=== PATIENT | female | born 1990 | race Caucasian/White ===

== ENCOUNTER 2018-01-18 15:13 | Emergency (ER) | payer MEDICAID ==
--- NOTE | 2018-01-18 15:25 | EDPHY ---
H & P Time Seen by Provider: 01/18/18 15:15 HPI/ROS: CHIEF COMPLAINT: Heroin overdose HISTORY OF PRESENT ILLNESS: The patient is a 27-year-old female with history of IV heroin abuse who [facility]. She had some leftover heroin with her and snorted it at 2:00 p.m. Today. She was found unresponsive by staff. She did not respond to sternal rub but did respond to 4 mg of intranasal Narcan. She is now awake and alert. EMS was called and did not intervene other than bring her here. They are not able to obtain IV access. She denies any complaints at this time other than a mild headache. She states that she took her typical amount of her heroin but she has not used in about a month. REVIEW OF SYSTEMS: Constitutional: denies: chills, fever, recent illness, recent injury EENTM: denies: blurred vision, double vision, nose congestion Respiratory: denies: cough, shortness of breath Cardiac: denies: chest pain, irregular heart rate, lightheadedness, palpitations Gastrointestinal/Abdominal: denies: abdominal pain, diarrhea, nausea, vomiting, blood streaked stools Genitourinary: denies: dysuria, frequency, hematuria, pain Musculoskeletal: denies: joint pain, muscle pain Skin: denies: lesions, rash, jaundice, bruising Neurological: denies: headache, numbness, paresthesia, tingling, dizziness, weakness Hematologic/Lymphatic: denies: blood clots, easy bleeding, easy bruising Immunologic/allergic: denies: HIV/AIDS, transplant EXAM: GENERAL: Well-appearing, well-nourished and in no acute distress. HEAD: Atraumatic, normocephalic. EYES: Pupils equal round and reactive to light, extraocular movements intact, sclera anicteric, conjunctiva are normal. ENT: TMs normal, nares patent, oropharynx clear without exudates. Moist mucous membranes. NECK: Normal range of motion, supple without lymphadenopathy or JVD. LUNGS: Rub cachorro to chest, Breath sounds clear to auscultation bilaterally and equal. No wheezes rales or rhonchi. HEART: Regular rate and rhythm without murmurs, rubs or gallops. ABDOMEN: Soft, nontender, normoactive bowel sounds. No guarding, no rebound. No masses appreciated. BACK: No CVA tenderness, no spinal tenderness, step-offs or deformities EXTREMITIES: Normal range of motion, no pitting or edema. No clubbing or cyanosis. NEUROLOGICAL: Cranial nerves II through XII grossly intact. Normal speech, normal gait. 5/5 strength, normal movement in all extremities, normal sensation PSYCH: Normal mood, normal affect. SKIN: See above, Warm, dry, normal turgor, no visible rashes or lesions. Source: Patient, EMS Exam Limitations: No limitations - Personal History Current Tetanus/Diphtheria Vaccine: Yes - Medical/Surgical History Hx Asthma: No Hx Chronic Respiratory Disease: No Hx Diabetes: No Hx Cardiac Disease: No Hx Renal Disease: No Hx Cirrhosis: No Hx Alcoholism: No Hx HIV/AIDS: No Hx Splenectomy or Spleen Trauma: No Other PMH: IV drug abuse, MRSA, KIDNEY STONES - Family History Significant Family History: No pertinent family hx - Social History Smoking Status: Never smoked Alcohol Use: Occasionally Drug Use: Heroin Constitutional: Initial Vital Signs Temperature (C) 36.7 C 01/18/18 15:21 Heart Rate 83 01/18/18 15:21 Respiratory Rate 16 01/18/18 15:21 Blood Pressure 116/81 H 01/18/18 15:21 O2 Sat (%) 98 01/18/18 15:21 O2 Delivery Mode Room Air Allergies/Adverse Reactions: Penicillins Allergy (Severe, Verified 01/18/18 15:24) Anaphylaxis amoxicillin Allergy (Verified 01/18/18 15:24) Home Medications: Medication Instructions Recorded None 11/14/10 Medical Decision Making ED Course/Re-evaluation: The onset of action for intranasal heroin is delayed by about 15 min compared to IV dosing. The patient is already through that time period. We will observe as the Narcan wears off. She is currently well-appearing and has no significant complaints. 4:40 p.m. the patient remains completely stable and alert. She would like to go back to the [facility]. I think she is out of any risk of danger. She is happy with this plan. 6:00 p.m. There was some trouble getting the patient back to the [facility]. They initially did not want to taken recommended she went to [facility]. [facility] will not take her. [facility] eventually agree to take her back. Differential Diagnosis: Partial list of the Differential diagnosis considered include but were not limited to; heroin abuse, overdose, intoxication and although unlikely based on the history and physical exam, I also considered head injury, infection, withdrawal. - Data Points Medications Given: Discontinued Medications Ibuprofen (Motrin) 600 mg PO EDNOW ONE Stop: 01/18/18 15:47 Last Admin: 01/18/18 15:47 Dose: 600 mg Departure - Departure Disposition: Home, Routine, Self-Care Clinical Impression: Polysubstance abuse Heroin overdose Qualifiers: Encounter type: initial encounter Injury intent: accidental or unintentional Qualified Code(s): T40.1X1A - Poisoning by heroin, accidental (unintentional), initial encounter Condition: Fair Instructions: Narcotic Abuse (ED) Additional Instructions: [facility] directly [facility] Referrals: Patient,NotPresent [Unknown] - As per Instructions
[2018-01-18] MEDS ORDERED: BACITRACIN OINTMENT 1 PACKET TP ONE (15:34)
[2018-01-18] MEDS ORDERED: IBUPROFEN 600 MG TAB PO ONE ×2 (15:44→15:46)
[2018-01-18 19:18] VITALS: BP 99/62
== END 2018-01-18 19:49 | disposition home or self-care (01) ==
LOC: EDUNIT#
DX: T40.1X1A Poisoning by heroin, accidental (unintentional), initial encounter (principal); F19.10 Other psychoactive substance abuse, uncomplicated